=== PATIENT | female | born 1975 | race Caucasian/White ===

== ENCOUNTER → 2016-05-01 | Day surgery (SDC) | payer OTHER | LOC: RAD 12:48 | PROVIDERS: ATTEND Nuclear Medicine | PROC: BP09ZZZ Plain Radiography of Left Shoulder (ICD-10-PCS; principal; 2016-05-01) | DX: S43.305A Dislocation of unspecified parts of left shoulder girdle, initial encounter (principal); S42.292A Other displaced fracture of upper end of left humerus, initial encounter for closed fracture; X58.XXXA Exposure to other specified factors, initial encounter | CPT/HCPCS: 73222; 73040; 77002; A9576 ==

== ENCOUNTER 2016-06-08 11:21 | Emergency (ER) | payer OTHER ==
--- NOTE | 2016-06-08 12:04 | ER Document Report ---
ED Extremity Problem, Upper <KWESI BROCK - Last Filed: 06/08/16 14:24> - General Mode of Arrival: Ambulatory Information source: Patient TRAVEL OUTSIDE OF THE [place] IN LAST 30 DAYS: No - HPI Patient complains to provider of: Pain, Left, Shoulder Onset: Just prior to arrival Where: Home Quality of pain: Achy, Sharp Severity of pain: Severe Pain Level: 5 Associated symptoms: None Similar symptoms previously: Yes Recently seen / treated by doctor: Yes <ABDOULAYE VAZQUEZ - Last Filed: 06/08/16 14:37> - General Chief Complaint: Shoulder Injury Stated Complaint: SHOULDER INJURY Notes: Patient is a 40-year-old female that presents to the emergency department today with complaints of a left shoulder dislocation. Patient has chronic left shoulder dislocations. Patient states her last left shoulder dislocation was in February and she had to be reduced in the operating room. Patient states she is scheduled for surgery on the left shoulder on August 05 at [facility]. Patient states she was getting out of bed this morning when the dislocation occurred. Patient has good sensation and brisk capillary refill distally. (ABDOULAYE VAZQUEZ) - Related Data Allergies/Adverse Reactions: ergotamine [Ergotamine] Allergy (Verified 10/28/14 08:27) erythromycin base [Erythromycin Base] Allergy (Verified 10/28/14 08:27) erythrosine sodium [Erythrosine] Allergy (Verified 10/28/14 08:27) morphine [Morphine] Allergy (Verified 10/28/14 08:27) Penicillins Allergy (Verified 10/28/14 08:27) Sulfa (Sulfonamide Antibiotics) Allergy (Verified 10/28/14 08:27) Past Medical History - General Information source: Patient, [facility] Records - Social History Smoking Status: Current Every Day Smoker Cigarette use (# per day): Yes Frequency of alcohol use: None Drug Abuse: None Lives with: Family Family History: Reviewed & Not Pertinent Neurological Medical History: Reports: Hx Migraine Musculoskeltal Medical History: Reports Other - chronic left shoulder dislocation Psychiatric Medical History: Reports: Hx Post Traumatic Stress Disorder Past Surgical History: Reports: Hx Oral Surgery - dental implants, Hx Orthopedic Surgery - rt arm, lt elbow and shoulder, frequent left shoulder sx for dislocations - Immunizations Hx Diphtheria, Pertussis, Tetanus Vaccination: Yes <ABDOULAYE VAZQUEZ - Last Filed: 06/08/16 14:37> Review of Systems - Review of Systems Constitutional: No symptoms reported EENT: No symptoms reported Cardiovascular: No symptoms reported Respiratory: No symptoms reported Gastrointestinal: No symptoms reported Genitourinary: No symptoms reported Female Genitourinary: No symptoms reported Musculoskeletal: See HPI, Joint pain - left shoulder dislocation Skin: No symptoms reported Hematologic/Lymphatic: No symptoms reported Neurological/Psychological: No symptoms reported -: Yes All other systems reviewed and negative <ABDOULAYE VAZQUEZ - Last Filed: 06/08/16 14:37> Physical Exam - General General appearance: Appears well, Alert In distress: Mild - HEENT Head: Normocephalic, Atraumatic Eyes: Normal Conjunctiva: Normal Extraocular movements intact: Yes Pupils: PERRL - Respiratory Respiratory status: No respiratory distress Chest status: Nontender - Cardiovascular Rhythm: Regular Heart sounds: Normal auscultation Murmur: No - Abdominal Inspection: Obese Distension: No distension - Extremities General upper extremity: Other - Obvious deformity to left shoulder, anterior dislocation. Brisk capillary refill, normal sensation and digit movement distally. General lower extremity: Normal inspection, Normal ROM. No: Edema - Neurological Neuro grossly intact: Yes Cognition: Normal Orientation: AAOx4 Speech: Normal - Psychological Associated symptoms: Normal affect, Normal mood - Skin Skin Temperature: Warm Skin Moisture: Dry Skin Color: Normal <ABDOULAYE VAZQUEZ - Last Filed: 06/08/16 14:37> - Vital signs Vitals: Resp Pulse Ox 18 97 06/08/16 11:57 06/08/16 11:57 Procedures - Conscious Sedation Conscious sedation Time started: 13:35 Time completed: 14:15 Consent obtained: Yes Indication: left anterior shoulder dislocation Normal healthy pt.: P1. - ASA Classification Airway Evaluation: Normal anatomy. No: Loose teeth - Dentures Used during procedure: Suction available, IV access obtained, Pulse ox on pt., hall monitor on pt. Medications administered: Fentanyl, Diprivan Reversal agents: Romazicon I personally performed/intraservice time: Sedation, Procedure, 31-45 min Complications: Yes - following procedure, the patient stopped causing oxygen saturation to drop - Joint Reduction/Fracture Care Left Shoulder Time completed: 14:00 Consent obtained: Yes Conscious sedation: Yes Pre-procedure NV exam: Yes Fracture: No: Open, Closed Manipulation comment: the joint was easily reduced with downward traction following adequate walter Post-procedure NV exam: Yes Post-reduction x-ray: Joint reduced Reduction attempts: 1 Complications: No <KWESI BROCK - Last Filed: 06/08/16 14:24> <ABDOULAYE VAZQUEZ - Last Filed: 06/08/16 14:37> - Conscious Sedation Conscious sedation Notes: The patient's oxygen saturation went as low as 50% before she was bag valve masked back up to 99%. Her dentures had been removed making it difficult to bag. A nasal trumpet that insertion was attempted, but we have flexible nasal trumpets which would not pass. An oral airway was placed and she was successfully ventilated. After time of ventilated the patient, she was not waking up so Mazicon was given. She did wake up alert and oriented. (KWESI BROCK) - Joint Reduction/Fracture Care Left Shoulder Notes: 06/08/16 14:21 Patient was placed in a shoulder immobilizer after the shoulder was reduced. ( KWESI BORCK) Discharge <KWESI BROCK - Last Filed: 06/08/16 14:24> <ABDOULAYE VAZQUEZ - Last Filed: 06/08/16 14:37> - Discharge Clinical Impression: Anterior dislocation of left shoulder Qualifiers: Encounter type: initial encounter Qualified Code(s): S43.015A - Anterior dislocation of left humerus, initial encounter Condition: Stable Disposition: HOME, SELF-CARE Additional Instructions: Shoulder Dislocation: You've had a shoulder dislocation. Even after the shoulder is put back in place, careful care is needed to prevent further problems. As the shoulder dislocated, injury to the joint itself occurred. This must be allowed to heal. The usual treatment is a shoulder immobilizing sling. If this is your first dislocation, it must be left in place until the doctor allows you to remove it. This is important. Ice pack the shoulder frequently. One of the most important aspects of care for a shoulder dislocation is mobility exercises and strengthening exercises. You'll start these when it's safe to start moving the shoulder joint. Be sure to keep your follow-up appointments. If you develop numbness in the arm or hand, weakness of the hand muscles, arm swelling, or arm discoloration, call the doctor or return immediately. LEAVE THE SHOULDER IMMOBILIZER ON. FOLLOW UP WITH YOUR ORTHOPEDIC DOCTOR THIS WEEK. Prescriptions: Oxycodone HCl/Acetaminophen [Percocet 5-325 mg Tablet] 1 - 2 tab PO ASDIR PRN # 15 tablet PRN Reason: Referrals: JB SNELL FNP [Primary Care Provider] - Follow up as needed Scribe Attestation: 06/08/16 14:24 I personally performed the services described in the documentation, reviewed and edited the documentation which was dictated to the scribe in my presence, and it accurately records my words and actions. (KWESI BROCK) Scribe Documentation - Scribe Written by Chaitanya:: Chaitanya Nation, 06/08/2016 1212 acting as scribe for :: Bear <ABDOULAYE VAZQUEZ - Last Filed: 06/08/16 14:37>
[2016-06-08] MEDS ORDERED: KETOROLAC TROMETHAMINE INJ/PF 30 MG/1 ML SDV IV ONE (12:30)
[2016-06-08] MEDS ORDERED: FENTANYL CITRATE INJ/PF 250 MCG/5 ML AMPULE IV PRN (12:32)
[2016-06-08] MEDS ORDERED: PROPOFOL INJ 200 MG/20 ML VIAL IV PRN (12:33)
[2016-06-08] MEDS ORDERED: FLUMAZENIL INJ 0.5 MG/5 ML VIAL IV ONE ×2 (13:47→13:56)
[2016-06-08 15:43] VITALS: BP 125/76
== END 2016-06-08 15:30 | disposition home or self-care (01) ==
LOC: ER 11:21
PROC: 0RSKXZZ Reposition Left Shoulder Joint, External Approach (ICD-10-PCS; principal; 2016-06-08)
DX: M24.412 Recurrent dislocation, left shoulder (principal); F17.210 Nicotine dependence, cigarettes, uncomplicated; Z88.6 Allergy status to analgesic agent; Z88.5 Allergy status to narcotic agent; Z88.2 Allergy status to sulfonamides; Z88.0 Allergy status to penicillin
CPT/HCPCS: 99284; 96374; 73020; 73030; 23650; L3650; J3490; J3010; J1885; J2704

== ENCOUNTER → 2017-03-05 | Outpatient (CLI) | payer OTHER ==
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
== END ==
LOC: RAD 09:12
PROVIDERS: ATTEND Orthopaedic Surgery
DX: Z98.890 Other specified postprocedural states (principal); M75.82 Other shoulder lesions, left shoulder

== ENCOUNTER 2018-01-15 08:59 | Emergency (ER) | payer OTHER ==
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
[2018-01-15 12:24] VITALS: BP 144/77
== END 2018-01-15 12:23 | disposition home or self-care (01) ==
LOC: ER 08:59
DX: M25.512 Pain in left shoulder (principal); M25.561 Pain in right knee; M79.602 Pain in left arm; M25.532 Pain in left wrist; V87.7XXA Person injured in collision between other specified motor vehicles (traffic), initial encounter
CPT/HCPCS: 71046; 99284

== ENCOUNTER 2018-04-14 15:12 | Emergency (ER) | payer OTHER ==
[2018-04-14] MEDS ORDERED: IPRATROPIUM/ALBUTEROL 0.5-2.5 MG/3 ML AMPUL NEB ONE ×2 (15:24→17:33)
[2018-04-14] MEDS ORDERED: ALBUTEROL SULFATE 0.083% NEB 2.5 MG/3 ML AMPUL NEB ONE ×2 (15:24→17:33)
[2018-04-14] MEDS ORDERED: METHYLPREDNISOLONE INJ 125 MG/2 ML SDV IV ONE (15:24)
--- NOTE | 2018-04-14 15:28 | ER Document Report ---
ED Respiratory Problem - General Stated Complaint: BREATHING PROBLEMS Time Seen by Provider: 04/14/18 15:16 Primary Care Provider: SENTHIL LOMBARDO DO [Primary Care Provider] - Follow up as needed Mode of Arrival: Stretcher Information source: Patient TRAVEL OUTSIDE OF THE [place] IN LAST 30 DAYS: No - HPI Patient complains to provider of: COPD, Cough, Short of breath Onset: Other - 2 weeks 2 weeks Duration: Worse/persistent Quality of pain: No pain Severity: Moderate Pain Level: 3 Context: Hx COPD, Smoker - Quit smoking 3 days ago Short of Breath: Moderate Chest pain/discomfort: Tightness Cough: Nonproductive Associated symptoms: Congestion, Cough, Short of breath, Wheezing Notes: Patient is a 42-year-old female presenting to the emergency room today complaining of cough with shortness of breath and wheezing times 2 weeks worsening today, states she feels dizzy and lightheaded at times nearly falling several times throughout the past few weeks, she denies any fevers, she recently quit smoking 3 days ago - Related Data Allergies/Adverse Reactions: ergotamine [Ergotamine] Allergy (Verified 10/28/14 08:27) erythromycin base [Erythromycin Base] Allergy (Verified 10/28/14 08:27) erythrosine sodium [Erythrosine] Allergy (Verified 10/28/14 08:27) morphine [Morphine] Allergy (Verified 10/28/14 08:27) Penicillins Allergy (Verified 10/28/14 08:27) Sulfa (Sulfonamide Antibiotics) Allergy (Verified 10/28/14 08:27) Past Medical History - General Information source: Patient - Social History Smoking Status: Former Smoker Family History: Reviewed & Not Pertinent Neurological Medical History: Reports: Hx Migraine Renal/ Medical History: Denies: Hx Peritoneal Dialysis Psychiatric Medical History: Reports: Hx Post Traumatic Stress Disorder Past Surgical History: Reports: Hx Oral Surgery - dental implants, Hx Orthopedic Surgery - rt arm, lt elbow and shoulder, frequent left shoulder sx for dislocations - Immunizations Hx Diphtheria, Pertussis, Tetanus Vaccination: Yes Review of Systems - Review of Systems Constitutional: No symptoms reported EENT: No symptoms reported Cardiovascular: No symptoms reported Respiratory: See HPI Gastrointestinal: No symptoms reported Genitourinary: No symptoms reported Female Genitourinary: No symptoms reported Musculoskeletal: No symptoms reported Skin: No symptoms reported Hematologic/Lymphatic: No symptoms reported Neurological/Psychological: No symptoms reported -: Yes All other systems reviewed and negative Physical Exam - Vital signs Vitals: Pulse Ox 100 04/14/18 15:14 Interpretation: Normal - General General appearance: Appears well, Alert - HEENT Head: Normocephalic, Atraumatic Eyes: Normal Pupils: PERRL - Respiratory Respiratory status: No respiratory distress Chest status: Nontender Breath sounds: Nonproductive cough, Wheezing Chest palpation: Normal - Cardiovascular Rhythm: Regular Heart sounds: Normal auscultation Murmur: No - Abdominal Inspection: Normal Distension: No distension Bowel sounds: Normal Tenderness: Nontender Organomegaly: No organomegaly - Back Back: Normal, Nontender - Extremities General upper extremity: Normal inspection, Nontender, Normal color, Normal ROM, Normal temperature General lower extremity: Normal inspection, Nontender, Normal color, Normal ROM, Normal temperature, Normal weight bearing. No: Ethan's sign - Neurological Neuro grossly intact: Yes Cognition: Normal Orientation: AAOx4 Garth Coma Scale Eye Opening: Spontaneous Garth Coma Scale Verbal: Oriented Garth Coma Scale Motor: Obeys Commands Garth Coma Scale Total: 15 Speech: Normal Motor strength normal: LUE, RUE, LLE, RLE Sensory: Normal - Psychological Associated symptoms: Normal affect, Normal mood - Skin Skin Temperature: Warm Skin Moisture: Dry Skin Color: Normal Course - Re-evaluation Re-evalutation: 04/14/18 18:53 Patient reports some relief of symptoms, on auscultation she is actually moving much more air and wheezing is only improved, she was able to ambulate to the bathroom without difficulty - Vital Signs Vital signs: Temp Pulse Resp BP Pulse Ox 102.7 F H 25 H 120/66 95 04/14/18 15:17 04/14/18 17:50 04/14/18 17:51 04/14/18 17:51 - Laboratory Result Diagrams: 04/14/18 16:30 04/14/18 16:30 Laboratory results interpreted by me: 04/14/18 04/14/18 04/14/18 16:30 16:30 16:30 RBC 3.53 L Hgb 11.2 L Hct 32.6 L Glucose 112 H AST 44 H NT-Pro-B Natriuret Pep 404 H - Diagnostic Test Radiology reviewed: Image reviewed, Reports reviewed - EKG Interpretation by Me EKG shows normal: Sinus rhythm Rate: Tachycardia Discharge - Discharge Clinical Impression: COPD exacerbation Acute bronchitis Qualifiers: Bronchitis organism: unspecified organism Qualified Code(s): J20.9 - Acute bronchitis, unspecified Condition: Stable Disposition: HOME, SELF-CARE Instructions: Bronchitis With Bronchospasm (Wheezing) ([facility]) Additional Instructions: Follow up with your primary care provider in one to 2 days. Return to the emergency room immediately if symptoms worsen or any additional concerns. Prescriptions: Albuterol Sulfate [Proair HFA Inhalation Aerosol 8.5 gm MDI] 1 puff IH Q4 PRN #1 mdi PRN Reason: Hydrocodone/Acetaminophen [[place] 5-325 mg Tablet] 1 tab PO Q6 #14 tablet Prednisone [Deltasone] 40 mg PO DAILY #10 tablet Referrals: SENTHIL LOMBARDO DO [Primary Care Provider] - Follow up as needed
[2018-04-14] MEDS ORDERED: ACETAMINOPHEN 325 MG TABLET PO ONE (16:09)
[2018-04-14 16:39] LABS: ABSOLUTE EOSINOPHILS # (AUTO) 0.1 10^3/uL (0.0-0.6); ABSOLUTE LYMPHOCYTES (AUTO) 1.6 10^3/uL (0.5-4.7); ABSOLUTE MONOCYTES (AUTO) 0.7 10^3/uL (0.1-1.4); ABSOLUTE NEUT (AUTO) 5.6 10^3/uL (1.7-8.2); BASOPHILS % (AUTO) 0.5 % (0-2); EOSINOPHILS % (AUTO) 0.8 % (0-6); HEMATOCRIT 32.6 % (36.0-47.0); HEMOGLOBIN 11.2 g/dL (12.0-15.5); LYMPHOCYTES % (AUTO) 19.7 % (13-45); MEAN CORPUSCULAR HEMOGLOBIN 31.8 pg (27.0-33.4); MEAN CORPUSCULAR HGB CONC 34.4 g/dL (32.0-36.0); MEAN CORPUSCULAR VOLUME 92 fl (80-97); MONOCYTES % (AUTO) 8.7 % (3-13); PLATELET COUNT 314 10^3/uL (150-450); RED BLOOD COUNT 3.53 10^6/uL (3.72-5.28); RED CELL DISTRIBUTION WIDTH 13.6 % (11.5-14.0); SEGMENTED NEUTROPHILS % (AUTO) 70.3 % (42-78); TOTAL CELLS COUNTED % (AUTO) 100 %; WHITE BLOOD COUNT 7.9 10^3/uL (4.0-10.5)
--- NOTE | 2018-04-14 16:49 | RADIOLOGY REPORT (SQ) ---
EXAM DESCRIPTION: CHEST 2 VIEWS COMPLETED DATE/TIME: 04/14/2018 4:41 pm REASON FOR STUDY: cough COMPARISON: 01/15/2018 EXAM PARAMETERS: NUMBER OF VIEWS: two views TECHNIQUE: Digital Frontal and Lateral radiographic views of the chest acquired. RADIATION DOSE: NA LIMITATIONS: none FINDINGS: LUNGS AND PLEURA: Pulmonary vascular congestion. No infiltrate or effusion. No mass. MEDIASTINUM AND HILAR STRUCTURES: No masses or contour abnormalities. HEART AND VASCULAR STRUCTURES: Heart normal size. No evidence for failure. BONES: No acute findings. HARDWARE: None in the chest. OTHER: No other significant finding. IMPRESSION: Pulmonary vascular congestion without dk pulmonary edema. No acute pulmonary infiltr ates. TECHNICAL DOCUMENTATION: JOB ID: [id number]- All Rights Reserved Reading location - IP/workstation name: [email or web address]
[2018-04-14 16:57] LABS: ALANINE AMINOTRANSFERASE 22 U/L (9-52); ALBUMIN 4.3 g/dL (3.5-5.0); ALKALINE PHOSPHATASE 84 U/L (38-126); ANION GAP 8 (5-19); ASPARTATE AMINO TRANSFERASE 44 U/L (14-36); BILIRUBIN,DIRECT 0.4 mg/dL (0.0-0.4); BILIRUBIN,TOTAL 0.5 mg/dL (0.2-1.3); BLOOD UREA NITROGEN 13 mg/dL (7-20); CALCIUM 8.5 mg/dL (8.4-10.2); CARBON DIOXIDE 24 mmol/L (22-30); CHLORIDE 107 mmol/L (98-107); GLUCOSE 112 mg/dL (75-110); POTASSIUM 3.8 mmol/L (3.6-5.0); SODIUM 139.3 mmol/L (137-145)
[2018-04-14] MEDS: MAGNESIUM SULFATE/D5W 1 GM/100 ML RTUPB IV SCH ×2 (18:06→19:26)
--- NOTE | 2018-04-14 18:49 | EKG REPORT ---
SEVERITY:- BORDERLINE ECG - SINUS TACHYCARDIA BORDERLINE PROLONGED QT INTERVAL : Confirmed by: Ismael Perry MD 14-Apr-2018 18:48:51
[2018-04-14] MEDS ORDERED: HYDROCODONE/ACETAMINOPHEN 5-325 MG TABLET PO ONE (18:52)
[2018-04-14] MEDS ORDERED: DIPHENHYDRAMINE HCL 50 MG/ML VIAL IV ONE (18:52)
[2018-04-14 21:22] VITALS: BP 133/64
== END 2018-04-14 21:36 | disposition home or self-care (01) ==
LOC: ER 15:12
DX: J44.0 Chronic obstructive pulmonary disease with (acute) lower respiratory infection (principal); J20.9 Acute bronchitis, unspecified; J44.1 Chronic obstructive pulmonary disease with (acute) exacerbation; R05 Cough; R06.02 Shortness of breath; R42 Dizziness and giddiness; R00.0 Tachycardia, unspecified; Z87.891 Personal history of nicotine dependence; Z88.1 Allergy status to other antibiotic agents; Z88.6 Allergy status to analgesic agent; Z88.5 Allergy status to narcotic agent; Z88.0 Allergy status to penicillin; Z88.2 Allergy status to sulfonamides
CPT/HCPCS: 93005; 36415; 87040; 84703; 85025; 80053; 83880; 71046; 93010; J1200; J2930; J3475; J7620

== ENCOUNTER 2019-08-26 19:47 | Emergency (ER) | payer OTHER ==
[2019-08-26 20:17] LABS: ABSOLUTE BASOPHILS # (AUTO) 0.1 10^3/uL (0.0-0.2); ABSOLUTE EOSINOPHILS # (AUTO) 0.3 10^3/uL (0.0-0.6); ABSOLUTE LYMPHOCYTES (AUTO) 3.3 10^3/uL (0.5-4.7); ABSOLUTE MONOCYTES (AUTO) 0.7 10^3/uL (0.1-1.4); ABSOLUTE NEUT (AUTO) 5.7 10^3/uL (1.7-8.2); BASOPHILS % (AUTO) 1.2 % (0-2); EOSINOPHILS % (AUTO) 2.7 % (0-6); HEMATOCRIT 34.2 % (36.0-47.0); HEMOGLOBIN 10.8 g/dL (12.0-15.5); LYMPHOCYTES % (AUTO) 32.8 % (13-45); MEAN CORPUSCULAR HEMOGLOBIN 24.8 pg (27.0-33.4); MEAN CORPUSCULAR HGB CONC 31.5 g/dL (32.0-36.0); MEAN CORPUSCULAR VOLUME 79 fl (80-97); MONOCYTES % (AUTO) 6.8 % (3-13); PLATELET COUNT 363 10^3/uL (150-450); RED BLOOD COUNT 4.35 10^6/uL (3.72-5.28); SEGMENTED NEUTROPHILS % (AUTO) 56.5 % (42-78); TOTAL CELLS COUNTED % (AUTO) 100 %; WHITE BLOOD COUNT 10.1 10^3/uL (4.0-10.5)
[2019-08-26] MEDS ORDERED: NORMAL SALINE 1000 ML 1,000 ML IV ONE (20:33)
[2019-08-26] MEDS ORDERED: METHYLPREDNISOLONE INJ 125 MG/2 ML SDV IV ONE (20:34)
[2019-08-26] MEDS ORDERED: IPRATROPIUM/ALBUTEROL 0.5-2.5 MG/3 ML AMPUL NEB ONE (20:35)
[2019-08-26 20:36] LABS: ALBUMIN 3.7 g/dL (3.5-5.0); ALKALINE PHOSPHATASE 79 U/L (38-126); ANION GAP 6 (5-19); ASPARTATE AMINO TRANSFERASE 20 U/L (14-36); BILIRUBIN,TOTAL 0.1 mg/dL (0.2-1.3); BLOOD UREA NITROGEN 10 mg/dL (7-20); CARBON DIOXIDE 27 mmol/L (22-30); CHLORIDE 106 mmol/L (98-107); GLUCOSE 119 mg/dL (75-110); POTASSIUM 4.2 mmol/L (3.6-5.0); TOTAL PROTEIN 6.4 g/dL (6.3-8.2)
--- NOTE | 2019-08-26 20:43 | ER Document Report ---
ED General - General Chief Complaint: Shortness Of Breath Stated Complaint: SHORTNESS OF BREATH Time Seen by Provider: 08/26/19 20:11 Primary Care Provider: SENTHIL LOMBARDO DO [NO LOCAL MD] - Follow up as needed TRAVEL OUTSIDE OF THE [place] IN LAST 30 DAYS: No - HPI Notes: Chief complaint: Shortness of breath and syncope HPI: 43-year-old female with lifelong history of asthma and multiple prior hospitalizations for asthma with no intubations or ICU admissions now presents with intermittent wheezing over the last 1 week. Her breathing became much worse tonight. She took several nebulizer treatments at home and according to her briefly fainted. There was some question as to whether or not she had stopped breathing. EMS was called and when I got there she was awake and alert and had a strong pulse and appeared somewhat tachypneic. They gave 1 nebulizer treatment and transported her here without administration further medications. Patient says she feels better at this point but still was somewhat tight in her chest. She denies any chest pain. She denies sputum production. She denies fever chills. She denies any known COVID-19 exposure and says she has not traveled away from her home and a couple of months. She had quit smoking in the past but recently restarted and says she is only been smoking 2 to 3 cigarettes/day. She is not currently on any steroids. She does not use any oxygen at home. Patient denies any known history of thromboembolic disease or cardiac disease. - Related Data Allergies/Adverse Reactions: ergotamine [Ergotamine] Allergy (Verified 10/28/14 08:27) erythromycin base [Erythromycin Base] Allergy (Verified 10/28/14 08:27) erythrosine sodium [Erythrosine] Allergy (Verified 10/28/14 08:27) morphine [Morphine] Allergy (Verified 10/28/14 08:27) Penicillins Allergy (Verified 10/28/14 08:27) Sulfa (Sulfonamide Antibiotics) Allergy (Verified 10/28/14 08:27) Past Medical History - General Information source: Patient, Emergency Med Personnel, [facility] Records - Social History Smoking Status: Current Every Day Smoker Frequency of alcohol use: None Drug Abuse: None Family History: Other - CHF and thromboembolic disease Patient has homicidal ideation: No - Past Medical History Cardiac Medical History: Reports: None Pulmonary Medical History: Reports: Hx Asthma, Hx Bronchitis, Hx COPD EENT Medical History: Reports: None Neurological Medical History: Reports: Hx Migraine Endocrine Medical History: Reports: None Renal/ Medical History: Reports: None. Denies: Hx Peritoneal Dialysis Malignancy Medical History: Reports: None GI Medical History: Reports: None Musculoskeletal Medical History: Reports Other - Recurrent left shoulder di slocations and previous surgery left shoulder. Skin Medical History: Reports None Psychiatric Medical History: Reports: Hx Post Traumatic Stress Disorder Infectious Medical History: Reports: None Past Surgical History: Reports: Hx Oral Surgery - dental implants, Hx Orthopedic Surgery - rt arm, lt elbow and shoulder, frequent left shoulder sx for dislocations - Immunizations Hx Diphtheria, Pertussis, Tetanus Vaccination: Yes Review of Systems - Review of Systems Notes: Constitutional: Negative for fever. HENT: Negative for sore throat. Eyes: Negative for visual changes. Cardiovascular: Negative for chest pain. Respiratory: As per HPI. Gastrointestinal: Negative for abdominal pain, vomiting or diarrhea. Genitourinary: Negative for dysuria. Musculoskeletal: Negative for back pain. Skin: Negative for rash. Neurological: As per HPI. 10 point ROS negative except as marked above and in HPI. Physical Exam - Vital signs Vitals: Pulse Ox 98 08/26/19 19:48 - Notes Notes: GENERAL: Mildly obese middle-aged female appearing i mildly dyspneic. 98% O2 saturation by pulse oximetry on room air. SKIN: Good turgor no rashes. HEAD: Normocephalic atraumatic. EYES: PERRLA. EOMI. Conjunctivae and sclerae clear. EARS: CANALS AND TMS CLEAR. NOSE: CLEAR. MOUTH: Moist mucosa. Good dentition. No stridor or edema. No drooling. NECK: Supple. No masses or thyromegaly. No adenopathy. Carotids 2+ without bruits. No JVD. BACK: Symmetrical without tenderness. CHEST: Respirations minimally labored. Few faint end expiratory wheezes bilaterally. Slightly prolonged expiratory phase. Patient is mildly breathless when talking. HEART: Tachycardic regular rhythm. No murmur gallop or rub. ABDOMEN: Soft nontender without masses, organomegaly or rebound. Bowel sounds normally active. No bruits. GENITALIA: Deferred. EXTREMITIES: No edema. No calf tenderness. Cap refill less than 1.5 seconds. Dorsalis pedis and posterior tibial pulses 3+ and symmetrical. NEUROLOGICAL: GCS 15. Alert and oriented x3. Fluent speech. Cranial nerves II through XII intact. Sensorimotor and cerebellar normal. Normal tone. PSYCHIATRIC: Mildly anxious affect. Course - Re-evaluation Re-evalutation: 08/27/19 00:18 Patient appears to be suffering from asthma exacerbation. She had a momentary syncopal episode at home. By time of arrival here she was oxygenating normally on room air and had just some mild wheezes. I gave her some IV Solu-Medrol and additional DuoNeb treatment with complete clearing of her wheezes. Her chest x- ray is normal. She is afebrile. Her vital signs are stable remarkable only for a sinus tachycardia. This resolved with administration of a liter of normal saline IV. Chest x-ray is normal. EKG was normal other than elevated rate when she came in. Troponin is negative. D-dimer is negative. BNP is normal. Patient is very comfortable on recheck and wants to go home and I think this is appropriate. Findings, clinical impression and plan of treatment have been discussed with patient/family. Understanding of current findings and recommendations has been acknowledged by them and there is agreement regarding disposition and follow-up. - Vital Signs Vital signs: Temp Pulse Resp BP Pulse Ox 98.7 F 115 H 24 H 160/100 H 98 08/26/19 19:54 08/26/19 19:54 08/26/19 19:54 08/26/19 19:54 08/26/19 19:54 - Laboratory Result Diagrams: 08/26/19 19:58 08/26/19 19:58 Laboratory results interpreted by me: 08/26/19 08/26/19 19:58 19:58 Hgb 10.8 L Hct 34.2 L MCV 79 L MCH 24.8 L MCHC 31.5 L RDW 20.0 H Glucose 119 H Total Bilirubin 0.1 L - EKG Interpretation by Me Additional EKG results interpreted by me: 08/26/19 20:43 Twelve-lead EKG from 2030 hrs. reviewed contemporaneously by me showing sinus tachycardia with a rate of 110. Intervals normal and QRS axis is +37 degrees. There are no acute ST/T wave changes present. When compared to a prior tracing of 04/14/2018 there is no significant interval change. Indication for current study: Tachycardia and dyspnea. Discharge - Discharge Clinical Impression: Asthma exacerbation, Cigarette smoking Condition: Stable Disposition: HOME, SELF-CARE Additional Instructions: Return here as needed for new or worsening symptoms: Pain that is worsening or unimproved Uncontrolled vomiting High fever or shaking chills Overall worsening Stop smoking. Continue your home medications including your nebulizer with duo nebs and Ventolin as a rescue inhaler. Take prescribed prednisone as directed. Follow-up within the next 3 to 5 days with your primary care physician. Prescriptions: Prednisone [Deltasone 20 mg Tablet] 2 tab PO DAILY 5 Days tablet Ipratropium/Albuterol Sulfate [Duoneb 3 ml Ampul] 3 ml NEB Q6 30 Days #120 v ial.neb Albuterol Sulfate [Proair HFA Inhalation Aerosol 8.5 gm MDI] 2 puff IH Q4H PRN #1 mdi PRN Reason: Forms: Smoking Cessation Education Referrals: SENTHIL LOMBARDO DO [NO LOCAL MD] - Follow up as needed
--- NOTE | 2019-08-26 20:52 | RADIOLOGY REPORT (SQ) ---
EXAM DESCRIPTION: CLINICAL HISTORY: 43 years Female SOB COMPARISON: 04/14/2018 FINDINGS: The cardiomediastinal silhouette appears unremarkable. No consolidating infiltrates or pleural effusions. No pneumothorax. Increased density over the lower lung sellers likely reflects overlying soft tissue artifact. IMPRESSION: No acute abnormality is identified.
[2019-08-26 21:57] LABS: ARTERIAL BLOOD BASE EXCESS -1.1 mmol/L; ARTERIAL BLOOD H2CO3 1.11 mmol/L (1.05-1.35); ARTERIAL BLOOD HCO3 23.1 mmol/L (20-24); ARTERIAL BLOOD O2 SATURATION 96.5 % (94-98); ARTERIAL BLOOD PH 7.41 (7.35-7.45); ARTERIAL BLOOD PO2 84.5 mmHg (80-100); ARTERIAL BLOOD TOTAL CO2 24.3 mmol/L (21-25)
[2019-08-26 21:58] LABS: ARTERIAL BLOOD FIO2 ROOM AIR
[2019-08-26 22:09] LABS: APPEARANCE,URINE SLIGHTLY-CLOUDY; BILIRUBIN,URINE NEGATIVE (NEGATIVE); COLOR,URINE YELLOW; GLUCOSE, URINE NEGATIVE (NEGATIVE); KETONES,URINE NEGATIVE (NEGATIVE); LEUKOCYTE ESTERASE,URINE NEGATIVE (NEGATIVE); NITRITE,URINE NEGATIVE (NEGATIVE); PROTEIN,URINE NEGATIVE (NEGATIVE); URINE SPECIFIC GRAVITY 1.025; UROBILINOGEN,URINE NEGATIVE mg/dL (<2.0)
[2019-08-27 00:40] VITALS: BP 154/103
--- NOTE | 2019-08-27 09:43 | EKG REPORT ---
SEVERITY:- OTHERWISE NORMAL ECG - SINUS TACHYCARDIA : Confirmed by: Camila Wiseman MD 27-Aug-2019 09:42:27
== END 2019-08-27 00:40 | disposition home or self-care (01) ==
LOC: ER 19:47
DX: J45.901 Unspecified asthma with (acute) exacerbation (principal); J44.9 Chronic obstructive pulmonary disease, unspecified; R55 Syncope and collapse; F17.210 Nicotine dependence, cigarettes, uncomplicated; E66.9 Obesity, unspecified; R00.0 Tachycardia, unspecified; R06.02 Shortness of breath; R07.89 Other chest pain; Z79.899 Other long term (current) drug therapy; Z88.6 Allergy status to analgesic agent; Z88.1 Allergy status to other antibiotic agents; Z88.5 Allergy status to narcotic agent; Z88.0 Allergy status to penicillin; Z88.2 Allergy status to sulfonamides
CPT/HCPCS: 93005; 94640; 99285; 96361; 96374; 36415; 82803; 83735; 85025; 80053; 81001; 84484; 85379; 83880; 71045; 93010; J2930; J7030; J7620